=== PATIENT | female | born 1970 | race Caucasian/White ===

== ENCOUNTER 2018-01-23 12:25 | Inpatient (IN) | payer MEDICAID ==
[2018-01-23] MEDS ORDERED: cefTRIAXone 1 GM in Sodium Chloride 0.9% 50 ML IV ONE (13:15)
--- NOTE | 2018-01-23 13:22 | ED Physician Chart ---
ED Chief Complaint/HPI - Patient Information Date Seen:: 01/23/18 Time Seen:: 13:00 Chief Complaint:: Left Leg Redness History of Present Illness:: onset x 5 days of LLE redness, erythema, swelling, and pain; no report of trauma , H/As, S/T, neck pain, C/P, SOB, Abd. Pain, A/N/V/D/C, fever, chills, or urinary s/s Allergies:: Allergies Allergy/AdvReac Type Severity Reaction Status Date / Time No Known Allergies Allergy Verified 01/23/18 13:01 Vitals:: Vital Signs - 8 hr 01/23/18 13:01 Temp 97.9 F HR 79 RR 16 BP 121/62 O2 Sat % 98 Historian:: Patient, EMS Review:: Nurse's Note Reviewed, Old Chart Reviewed, EMS run form Reviewed ED Review of Systems - Review of Systems General/Constitutional: No fever, No chills, No weight loss, No weakness, No diaphoresis, No edema, No loss of appetite Skin: Skin lesions, Rash, No bruising Head: No headache, No light-headedness Eyes: No loss of vision, No pain, No diplopia ENT: No earache, No nasal drainage, No sore throat, No tinnitus Neck: No neck pain, No swelling, No thyromegaly, No stiffness, No mass noted Cardio Vascular: No chest pain, No palpitations, No PND, No orthopnea, No edema Pulmonary: No SOB, No cough, No sputum, No wheezing GI: No nausea, No vomiting, No diarrhea, No pain, No melena, No hematochezia, No constipation, No hematemesis G/U: No dysuria, No frequency, No hematuria, No nacturia Shot Polisher: No vaginal discharge, No abnormal vaginal bleed, No contraction Musculoskeletal: No bone or joint pain, No back pain, No muscle pain Endocrine: No polyuria, No polydipsia Psychiatric: Prior psych history, Depression, Anxiety, No suicidal ideation, No homicidal ideation, No auditory hallucination, No visual hallucination Hematopoietic: No bruising, No lymphadenopathy Allergic/Immuno: No urticaria, No angioedema Neurological: No syncope, No focal symptoms, No weakness, No paresthesia, No headache, No seizure, No dizziness, Confusion, No vertigo ED Past Medical History - Past Medical History Obtainable: Yes Past Medical History: Dementia Family History: None Social History: Non Smoker, No Alcohol, No Drug Use, Single, Care Facility Surgical History: None Psychiatricy History: Depression, Schizophrenia, Bipolar, Dementia Medication: Reviewed ED Physical Exam - Physical Examination General/Constitutional: Awake, Well-developed, well-nourished, Alert, No distress, GCS 15, Non-toxic appearing, Ambulatory Head: Atraumatic Eyes: Lids, conjuctiva normal, PERRL, EOMI Skin: Nl inspection, No rash, No skin lesions, No ecchymosis, Well hydrated, No lymphadenopathy Other Skin comments:: = LLE Cellulitis ENMT: External ears, nose nl, TM canals nl, Nasal exam nl, Lips, teeth, gums nl , Oropharynx nl, Tonsils nl Neck: Nontender, Full ROM w/o pain, No JVD, No nuchal rigidity, No bruit, No mass, No stridor Other Neck comments:: supple; no meningeal signs; no cervical tenderness Respiratory: Nl effort/Exclusion, Clear to Auscultation, No Wheeze/Rhonchi/Rales Cardio Vascular: RRR, No murmur, gallop, rubs, NL S1 S2, Carotid/Femoral/Distal pulses equal bilaterally GI: No tenderness/rebounding/guarding, No organomegaly, No hernia, Normal BS's, Nondistended, No mass/bruits, No McBurney tenderness, Rectum exam nl Other GI comments:: no pulsatile masses : No CVA tenderness Extremities: No tenderness or effusion, Full ROM, normal strength in all extremities, No edema, Normal digits & nails Neuro/Psych: Alert/oriented, DTR's symmetric, Normal sensory exam, Normal motor strength, Judgement/insight normal, Mood normal, Normal gait, No focal deficits Other Neuro/Psych comments:: no focal signs Misc: Normal back, No paraspinal tenderness ED Labs/Radiology/EKG Results - Lab Results Comments:: H/H: 11.8/34.5 - Radiology Results Comments:: U/S: no DVT; Negative; NAD - EKG Interpretations EKG Time:: 13:23 Rate & Rhythm: 66; NSR Comments:: non-specific st-t changes ED Septic Shock - . Is Septic Shock (SBP<90, OR Lactate>4 mmol\L) present?: No - <6hrs of presentation: Vital Signs: Vital Signs - 8 hr 01/23/18 13:01 Temp 97.9 F HR 79 RR 16 BP 121/62 O2 Sat % 98 ED Reassessment (Disposition) - Reassessment Reassessment Condition:: Improved - Diagnosis Diagnosis:: Dx: Cellulitis; Left Leg Pain; Anemia - Aftercare/Follow up Instructions Aftercare/Follow-Up Instructions:: Counseled pt regarding lab results/diagnosis & need follow up, Counseled pt & family regarding lab results/diagnosis & need follow up - Patient Disposition Discharge/Transfer:: Acute Care w/in this hosp Accepting Physician:: Dr. Daniel Time Called:: 1430 Time Responded:: 14:30 Admitted to:: Med/Surg Spoke to:: Dr. Daniel Admitting Medical Physician:: Dr. Daniel Condition at Disposition:: Stable, Improved
[2018-01-23 13:47] LABS: % BASOPHILS 0.5 % (0.0-2.0); % EOSINOPHILS 0.5 % (0.0-5.0); % LYMPHOCYTES 21.4 % (20.0-50.0); % MONOCYTES 7.8 % (2.0-10.0); % NEUTROPHILS 69.8 % (40.0-80.0); HEMATOCRIT 34.5 % (41.0-60); HEMOGLOBIN 11.8 gm/dL (12-16); LYMPHOCYTE ABSOLUTE 1.3 Th/cmm (1.5-3.0); MEAN CELL VOLUME 88.9 fl (81-100); MEAN CORPUSCULAR HEMOGLOBIN 30.4 pg (27.0-31.0); MEAN CORPUSCULAR HGB CONC 34.2 pg (28.0-36.0); MEAN PLATELET VOLUME 7.2 fl; MONOCYTE ABSOLUTE 0.5 Th/cmm (0.3-1.0); NEUTROPHILE ABSOLUTE 4.4 Th/cmm (1.8-8.0); PLATELET COUNT 201 Th/cmm (150-400); RED BLOOD COUNT 3.88 Mil/cmm (3.80-5.10); RED CELL DISTRIBUTION WIDTH 13.8 % (11.5-20.0); WHITE BLOOD COUNT 6.2 Th/cmm (4.8-10.8)
[2018-01-23 13:57] LABS: INR 0.98 (0.5-1.4); PROTHROMBIN TIME (TEST) 10.2 SECONDS (9.5-11.5)
[2018-01-23 14:00] LABS: ALBUMIN 3.5 gm/dL (3.7-5.3); ALKALINE PHOSPHATASE 39 U/L (34-104); ANION GAP 10.2 (7.0-16.0); BILIRUBIN,TOTAL 0.2 mg/dL (0.3-1.0); BUN - UREA NITROGEN 18 mg/dL (7-25); CALCIUM SERUM 9.1 mg/dL (8.6-10.3); CARBON DIOXIDE 30.7 mEq/L (21.0-31.0); CHLORIDE 100 mEq/L (98-107); CREATININE - SERUM 0.6 mg/dL (0.6-1.2); CREATININE KINASE 31 U/L (30-223); GFR AFRICAN-AMERICAN > 60.0 ml/min (>90); GFR NON AFRICAN-AMERICAN > 60.0 ml/min; GLUCOSE 131 mg/dL (70-105); POTASSIUM SERUM 3.9 mEq/L (3.5-5.1); SGOT 11 U/L (13-39); SGPT/ALT 5 U/L (7-52); SODIUM SERUM 137 mEq/L (136-145); TOTAL PROTEIN,SERUM 7.2 gm/dL (6.0-8.3)
--- NOTE | 2018-01-23 14:52 | Diagnostic Imaging Report ---
Bilateral lower extremity DVT study HISTORY: Pain COMPARISON: None Technique: Longitudinal and transverse sonographic images of the bilateral lower extremity veins were obtained with doppler analysis. FINDINGS: There is normal compressibility, augmentation and phasicity of the bilateral common femoral, superficial femoral, popliteal, and posterior tibial veins. There is suboptimal evaluation of bilateral peroneal veins. No thrombus is visualized. IMPRESSION: Suboptimal assessment of the bilateral peroneal veins. Otherwise No evidence of thrombus within the bilateral lower extremity veins.
[2018-01-23] MEDS ORDERED: INGREZZA 40 MG PO SCH (21:00)
[2018-01-23 21:04] LABS: URINE MICROSCOPIC INDICATED? YES; URINE SOURCE MIDSTREAM
[2018-01-23 21:05] LABS: URINE BILIRUBIN NEGATIVE (NEGATIVE); URINE BLOOD TRACE (NEGATIVE); URINE GLUCOSE (UA) NEGATIVE (NEGATIVE); URINE KETONE NEGATIVE (NEGATIVE); URINE LEUKOCYTE ESTERASE NEGATIVE (NEGATIVE); URINE NITRATE NEGATIVE (NEGATIVE); URINE PH 7.5 (4.6 - 8.0); URINE PROTEIN NEGATIVE (NEGATIVE); URINE UROBILINOGEN 0.2 E.U./dL (0.2 - 1.0)
[2018-01-23 21:10] LABS: URINE CLARITY CLEAR (CLEAR); URINE COLOR YELLOW
[2018-01-23 21:15] LABS: URINE BACTERIA NONE SEEN /hpf (NONE SEEN); URINE EPITHELIAL CELLS NONE SEEN /lpf (FEW); URINE WBC NONE SEEN /hpf (0-5)
[2018-01-23 21:51] VITALS: BP 106/78
[2018-01-23] MEDS ORDERED: Piperacillin Sodium/Tazobact 3.375 gm Vial IV ONE (21:53)
[2018-01-24] MEDS ORDERED: Piperacillin Sodium/Tazobact 3.375 gm Vial IV ONE (05:05)
[2018-01-24 06:49] LABS: % BASOPHILS 0.6 % (0.0-2.0); % EOSINOPHILS 0.8 % (0.0-5.0); % LYMPHOCYTES 37.6 % (20.0-50.0); % MONOCYTES 9.9 % (2.0-10.0); % NEUTROPHILS 51.1 % (40.0-80.0); HEMATOCRIT 33.2 % (41.0-60); HEMOGLOBIN 11.5 gm/dL (12-16); MEAN CELL VOLUME 89.4 fl (81-100); MEAN CORPUSCULAR HEMOGLOBIN 30.9 pg (27.0-31.0); MEAN CORPUSCULAR HGB CONC 34.6 pg (28.0-36.0); MEAN PLATELET VOLUME 7.5 fl; MONOCYTE ABSOLUTE 0.5 Th/cmm (0.3-1.0); NEUTROPHILE ABSOLUTE 2.9 Th/cmm (1.8-8.0); PLATELET COUNT 186 Th/cmm (150-400); RED BLOOD COUNT 3.71 Mil/cmm (3.80-5.10); RED CELL DISTRIBUTION WIDTH 13.7 % (11.5-20.0); WHITE BLOOD COUNT 5.4 Th/cmm (4.8-10.8)
[2018-01-24 07:06] LABS: ALB/GLOB RATIO 0.9 (1.0-1.8); ALBUMIN 3.2 gm/dL (3.7-5.3); ALKALINE PHOSPHATASE 36 U/L (34-104); BILIRUBIN,TOTAL 0.3 mg/dL (0.3-1.0); BUN - UREA NITROGEN 17 mg/dL (7-25); CALCIUM SERUM 8.9 mg/dL (8.6-10.3); CHLORIDE 101 mEq/L (98-107); CREATININE - SERUM 0.7 mg/dL (0.6-1.2); GFR AFRICAN-AMERICAN > 60.0 ml/min (>90); GFR NON AFRICAN-AMERICAN > 60.0 ml/min; GLUCOSE 89 mg/dL (70-105); SGOT 11 U/L (13-39); SGPT/ALT 5 U/L (7-52); SODIUM SERUM 137 mEq/L (136-145); TOTAL PROTEIN,SERUM 6.8 gm/dL (6.0-8.3)
--- NOTE | 2018-01-24 08:52 | History and Physical ---
History of Present Illness - HPI Chief Complaint: Lower leg edema HPI: Per chart information patient has having 5 days with redness and edema of lower extremities. Vital Signs: Last Vital Signs Temp 98.2 F 01/24/18 04:00 Pulse 69 01/24/18 04:00 Resp 18 01/24/18 04:00 BP 112/74 01/24/18 04:00 Pulse Ox 97 01/24/18 04:00 Past Medical History Cardiovascular: Report: No Pertinent Hx Pulmonary: Report: No Pertinent Hx BIT TRIPOLER: Report: Dementia GI: Report: No Pertinent Hx Psych: Report: Bipolar, Depression, Schizophrenia Musculoskeletal: Report: Weakness, Swelling, Other (Lower extremities with pitting edema 2+) Rheumatologic: Report: No pertinent Hx Infectious Disease: Report: No Pertinent Hx Renal/: Report: No Pertinent Hx Endocrine: Report: No Pertinent Hx Dermatology: Report: No Pertinent Hx Family Medical History - Family Member Mother Other Medical History: unable to give information. Social History Smoke: No Alcohol: None Drugs: None Lives: Retirement Domestic Violence: Negative - Medications Home Medications: Home Medication Medication Instructions Recorded Type Benztropine [Cogentin*] 1 tab PO DAILY 01/23/18 History Diphenhydramine HCl [Unisom] 2 cap PO BID PRN 01/23/18 History Divalproex Sodium [Depakote] 3 tab PO HS 01/23/18 History Ingrezza 40 mg PO HS 01/23/18 History Lorazepam [Ativan] 1 tab PO BID 01/23/18 History OLANZapine [ZyPREXA] 1 tab PO DAILY 01/23/18 History OLANZapine [ZyPREXA] 1 tab PO HS 01/23/18 History - Allergies Allergies/Adverse Reactions: Allergies Allergy/AdvReac Type Severity Reaction Status Date / Time No Known Allergies Allergy Verified 01/23/18 13:01 Review of Systems - Review of Systems Constitutional: Report: No Significant Eyes: Report: No Significant ENT: Report: No Significant Respiratory: Report: No Significant Cardiovascular: Report: No Significant Gastrointestinal: Report: No Significant Genitourinary: Report: No Significant Musculoskeletal: Report: No Significant Skin: Report: Other (Redness of both lower legs. ) Neurological: Report: Weakness Physical Exam - Physical Exam HEENT: Report: Ears Nose Throat within normal limits Neck: Report: Within normal limits Cardiovascular Systems: Report: Regular, Rate and Rhythm Respiratory: Report: Breath Sounds are within normal limits Abdomen: Report: Non-tender to palpation Back: Report: Inspection of back is within normal limits. Extremities: Report: Pedal edema was noted on inspection, Other Skin: Report: Warm, Dry, Other Neuro/Psych: Report: Disoriented to name time or place - Lab Results All Lab Results last 24 hours: Laboratory Results - last 24 hr 01/23/18 01/23/18 01/23/18 13:32 13:32 13:32 WBC 6.2 RBC 3.88 Hgb 11.8 L Hct 34.5 L MCV 88.9 MCH 30.4 MCHC Differential 34.2 RDW 13.8 Plt Count 201 MPV 7.2 Neutrophils % 69.8 Lymphocytes % 21.4 Monocytes % 7.8 Eosinophils % 0.5 Basophils % 0.5 PT 10.2 INR 0.98 PTT (Actin FS) 23.2 L Sodium 137 Potassium 3.9 Chloride 100 Carbon Dioxide 30.7 Anion Gap 10.2 BUN 18 Creatinine 0.6 Est GFR ( Amer) > 60.0 Est GFR (Non-Af Amer) > 60.0 BUN/Creatinine Ratio 30.0 Glucose 131 H Whole Bld Lactic Acid Calcium 9.1 Total Bilirubin 0.2 L AST 11 L ALT 5 L Alkaline Phosphatase 39 Creatine Kinase 31 Troponin I Total Protein 7.2 Albumin 3.5 L Globulin 3.7 Albumin/Globulin Ratio 1.0 Serum , Qual Urine Source Urine Color Urine Clarity Urine pH Ur Specific [place] Urine Protein Urine Glucose (UA) Urine Ketones Urine Blood Urine Nitrate Urine Bilirubin Urine Urobilinogen Ur Leukocyte Esterase Urine RBC Urine WBC Ur Epithelial Cells Urine Bacteria 01/23/18 01/23/18 01/23/18 13:32 13:32 13:32 WBC RBC Hgb Hct MCV MCH MCHC Differential RDW Plt Count MPV Neutrophils % Lymphocytes % Monocytes % Eosinophils % Basophils % PT INR PTT (Actin FS) Sodium Potassium Chloride Carbon Dioxide Anion Gap BUN Creatinine Est GFR ( Amer) Est GFR (Non-Af Amer) BUN/Creatinine Ratio Glucose Whole Bld Lactic Acid 1.20 Calcium Total Bilirubin AST ALT Alkaline Phosphatase Creatine Kinase Troponin I < 0.01 L Total Protein Albumin Globulin Albumin/Globulin Ratio Serum , Qual NEGATIVE Urine Source Urine Color Urine Clarity Urine pH Ur Specific [place] Urine Protein Urine Glucose (UA) Urine Ketones Urine Blood Urine Nitrate Urine Bilirubin Urine Urobilinogen Ur Leukocyte Esterase Urine RBC Urine WBC Ur Epithelial Cells Urine Bacteria 01/23/18 01/24/18 01/24/18 19:35 06:00 06:00 WBC 5.4 RBC 3.71 L Hgb 11.5 L Hct 33.2 L MCV 89.4 MCH 30.9 MCHC Differential 34.6 RDW 13.7 Plt Count 186 MPV 7.5 Neutrophils % 51.1 Lymphocytes % 37.6 Monocytes % 9.9 Eosinophils % 0.8 Basophils % 0.6 PT INR PTT (Actin FS) Sodium 137 Potassium 4.0 Chloride 101 Carbon Dioxide 29.0 Anion Gap 11.0 BUN 17 Creatinine 0.7 Est GFR ( Amer) > 60.0 Est GFR (Non-Af Amer) > 60.0 BUN/Creatinine Ratio 24.3 Glucose 89 Whole Bld Lactic Acid Calcium 8.9 Total Bilirubin 0.3 AST 11 L ALT 5 L Alkaline Phosphatase 36 Creatine Kinase Troponin I Total Protein 6.8 Albumin 3.2 L Globulin 3.6 Albumin/Globulin Ratio 0.9 L Serum , Qual Urine Source [place] Urine Color YELLOW Urine Clarity CLEAR Urine pH 7.5 Ur Specific [place] 1.010 Urine Protein NEGATIVE Urine Glucose (UA) NEGATIVE Urine Ketones NEGATIVE Urine Blood TRACE Urine Nitrate NEGATIVE Urine Bilirubin NEGATIVE Urine Urobilinogen 0.2 Ur Leukocyte Esterase NEGATIVE Urine RBC 2-5 Urine WBC NONE SEEN Ur Epithelial Cells NONE SEEN Urine Bacteria NONE SEEN - Assessment Assessment: Patient is awake, alert, confused, not oriented. Dx: Cellulitis, Dementia, Depression Schizophrenia, Bipolar - Plan Plan: Patient in IV NS, IV AB, continue with SNF meds. Will continue to monitor.
[2018-01-24] MEDS ORDERED: Benztropine 1 MG TAB PO SCH (09:00)
[2018-01-24] MEDS: cefTRIAXone 1 GM in Sodium Chloride 0.9% 50 ML IV SCH (14:18)
[2018-01-25 07:51] LABS: % BASOPHILS 0.6 % (0.0-2.0); % EOSINOPHILS 0.9 % (0.0-5.0); % LYMPHOCYTES 34.2 % (20.0-50.0); % MONOCYTES 11.1 % (2.0-10.0); % NEUTROPHILS 53.2 % (40.0-80.0); EOSINOPHILE ABSOLUTE 0.1 Th/cmm (0.1-0.4); HEMATOCRIT 35.5 % (41.0-60); HEMOGLOBIN 12.3 gm/dL (12-16); LYMPHOCYTE ABSOLUTE 2.1 Th/cmm (1.5-3.0); MEAN CORPUSCULAR HEMOGLOBIN 30.9 pg (27.0-31.0); MEAN CORPUSCULAR HGB CONC 34.7 pg (28.0-36.0); MEAN PLATELET VOLUME 7.3 fl; MONOCYTE ABSOLUTE 0.7 Th/cmm (0.3-1.0); NEUTROPHILE ABSOLUTE 3.1 Th/cmm (1.8-8.0); PLATELET COUNT 215 Th/cmm (150-400); RED BLOOD COUNT 3.99 Mil/cmm (3.80-5.10)
[2018-01-25 08:22] LABS: ALB/GLOB RATIO 0.9 (1.0-1.8); ALBUMIN 3.6 gm/dL (3.7-5.3); ALKALINE PHOSPHATASE 48 U/L (34-104); ANION GAP 12.4 (7.0-16.0); BILIRUBIN,TOTAL 0.4 mg/dL (0.3-1.0); BUN - UREA NITROGEN 15 mg/dL (7-25); CALCIUM SERUM 9.5 mg/dL (8.6-10.3); CARBON DIOXIDE 29.5 mEq/L (21.0-31.0); CHLORIDE 99 mEq/L (98-107); CREATININE - SERUM 0.8 mg/dL (0.6-1.2); GFR AFRICAN-AMERICAN > 60.0 ml/min (>90); GFR NON AFRICAN-AMERICAN > 60.0 ml/min; GLUCOSE 96 mg/dL (70-105); POTASSIUM SERUM 3.9 mEq/L (3.5-5.1); SGOT 11 U/L (13-39); SGPT/ALT 6 U/L (7-52); SODIUM SERUM 137 mEq/L (136-145); TOTAL PROTEIN,SERUM 7.5 gm/dL (6.0-8.3)
--- NOTE | 2018-01-25 09:00 | General Progress Note ---
Subjective - Review of Systems Service Date: 01/25/18 Subjective: I haven diarrhea Objective - Results Result Diagrams: 01/25/18 07:19 01/25/18 07:19 Recent Labs: Laboratory Last Values WBC 6.0 Th/cmm (4.8-10.8) 01/25/18 07:19 RBC 3.99 Mil/cmm (3.80-5.10) 01/25/18 07:19 Hgb 12.3 gm/dL (12-16) 01/25/18 07:19 Hct 35.5 % (41.0-60) L 01/25/18 07:19 MCV 89.0 fl (81-100) 01/25/18 07:19 MCH 30.9 pg (27.0-31.0) 01/25/18 07:19 MCHC Differential 34.7 pg (28.0-36.0) 01/25/18 07:19 RDW 14.0 % (11.5-20.0) 01/25/18 07:19 Plt Count 215 Th/cmm (150-400) 01/25/18 07:19 MPV 7.3 fl 01/25/18 07:19 Neutrophils % 53.2 % (40.0-80.0) 01/25/18 07:19 Lymphocytes % 34.2 % (20.0-50.0) 01/25/18 07:19 Monocytes % 11.1 % (2.0-10.0) H 01/25/18 07:19 Eosinophils % 0.9 % (0.0-5.0) 01/25/18 07:19 Basophils % 0.6 % (0.0-2.0) 01/25/18 07:19 PT 10.2 SECONDS (9.5-11.5) 01/23/18 13:32 INR 0.98 (0.5-1.4) 01/23/18 13:32 PTT (Actin FS) 23.2 SECONDS (26.0-38.0) L 01/23/18 13:32 Sodium 137 mEq/L (136-145) 01/25/18 07:19 Potassium 3.9 mEq/L (3.5-5.1) 01/25/18 07:19 Chloride 99 mEq/L (98-107) 01/25/18 07:19 Carbon Dioxide 29.5 mEq/L (21.0-31.0) 01/25/18 07:19 Anion Gap 12.4 (7.0-16.0) 01/25/18 07:19 BUN 15 mg/dL (7-25) 01/25/18 07:19 Creatinine 0.8 mg/dL (0.6-1.2) 01/25/18 07:19 Est GFR ( Amer) > 60.0 ml/min (>90) 01/25/18 07:19 Est GFR (Non-Af Amer) > 60.0 ml/min 01/25/18 07:19 BUN/Creatinine Ratio 18.8 01/25/18 07:19 Glucose 96 mg/dL (70-105) 01/25/18 07:19 Whole Bld Lactic Acid 1.20 mmol/L (0.60-1.99) 01/23/18 13:32 Calcium 9.5 mg/dL (8.6-10.3) 01/25/18 07:19 Total Bilirubin 0.4 mg/dL (0.3-1.0) 01/25/18 07:19 AST 11 U/L (13-39) L 01/25/18 07:19 ALT 6 U/L (7-52) L 01/25/18 07:19 Alkaline Phosphatase 48 U/L (34-104) 01/25/18 07:19 Creatine Kinase 31 U/L (30-223) 01/23/18 13:32 Troponin I < 0.01 ng/mL (0.01-0.05) L 01/23/18 13:32 Total Protein 7.5 gm/dL (6.0-8.3) 01/25/18 07:19 Albumin 3.6 gm/dL (3.7-5.3) L 01/25/18 07:19 Globulin 3.9 gm/dL 01/25/18 07:19 Albumin/Globulin Ratio 0.9 (1.0-1.8) L 01/25/18 07:19 Serum , Qual NEGATIVE (NEGATIVE) 01/23/18 13:32 Urine Source MIDSTREAM 01/23/18 19:35 Urine Color YELLOW 01/23/18 19:35 Urine Clarity CLEAR (CLEAR) 01/23/18 19:35 Urine pH 7.5 (4.6 - 8.0) 01/23/18 19:35 Ur Specific [place] 1.010 (1.005-1.030) 01/23/18 19:35 Urine Protein NEGATIVE mg/dL (NEGATIVE) 01/23/18 19:35 Urine Glucose (UA) NEGATIVE mg/dL (NEGATIVE) 01/23/18 19:35 Urine Ketones NEGATIVE mg/dL (NEGATIVE) 01/23/18 19:35 Urine Blood TRACE (NEGATIVE) 01/23/18 19:35 Urine Nitrate NEGATIVE (NEGATIVE) 01/23/18 19:35 Urine Bilirubin NEGATIVE (NEGATIVE) 01/23/18 19:35 Urine Urobilinogen 0.2 E.U./dL (0.2 - 1.0) 01/23/18 19:35 Ur Leukocyte Esterase NEGATIVE (NEGATIVE) 01/23/18 19:35 Urine RBC 2-5 /hpf (0-5) 01/23/18 19:35 Urine WBC NONE SEEN /hpf (0-5) 01/23/18 19:35 Ur Epithelial Cells NONE SEEN /lpf (FEW) 01/23/18 19:35 Urine Bacteria NONE SEEN /hpf (NONE SEEN) 01/23/18 19:35 - Physical Exam Vitals and I&O: Vital Signs Temp 96.8 F 01/25/18 08:07 Pulse 66 01/25/18 08:07 Resp 19 01/25/18 08:07 BP 90/55 01/25/18 08:07 Pulse Ox 99 01/25/18 08:07 Intake & Output 01/24/18 01/25/18 01/25/18 18:59 06:59 18:59 Intake Total 1150 350 Balance 1150 350 Weight (lbs) 108.318 kg 130.136 kg 130.136 kg Intake: Intake, IV Amount 50 50 Piperacillin Sodium/ 50 50 Tazobact 3.375 gm In Sodium Chloride 0.9% 50 ml @ 100 mls/hr IV Q8HR [facility] Rx#:[id number] Oral 1100 200 Other 100 Other: # Voids 3 3 # Bowel Movements 1 0 Stool Characteristics Soft Soft Soft Weight Source Bedscale Bedscale Bedscale Active Medications: Current Medications Benztropine Mesylate (Cogentin) 1 mg PO BID KATHLEEN Stop: 03/26/18 08:59 Diphenhydramine HCl (Benadryl) 100 mg PO BID PRN PRN Reason: Itching Divalproex Sodium (Depakote Dr) 1,500 mg PO HS KATHLEEN; Protocol Stop: 03/24/18 20:59 Last Admin: 01/24/18 20:18 Dose: 1,500 mg Ceftriaxone Sodium 1 gm/ (Sodium Chloride) 50 mls @ 100 mls/hr IV Q24H KATHLEEN Stop: 03/25/18 14:59 Last Admin: 01/24/18 14:18 Dose: 100 mls/hr Piperacillin Sod/Tazobactam (Sod 3.375 gm/ Sodium Chloride) 50 mls @ 100 mls/ hr IV Q8HR KATHLEEN Stop: 03/24/18 20:59 Last Admin: 01/25/18 05:19 Dose: 100 mls/hr Lorazepam (Ativan) 1 mg PO BID PRN; Protocol PRN Reason: Agitation Stop: 03/24/18 19:44 Olanzapine (Zyprexa) 10 mg PO DAILY [facility]; Protocol Stop: 03/24/18 19:44 Last Admin: 01/24/18 08:06 Dose: 10 mg General: Alert, Other (Confused not oriented) HEENT: Atraumatic Neck: Supple Cardiovascular: Regular rate Abdomen: Bowel sounds Extremities: Other (Redness and pitting edema 1+) Neurological: Other (Walk with walker assistance. Patient has tremor of both arms. ) Skin: Other (Redness of lower extremities.) Psych/Mental Status: Other (Confused, not oriented.) Assessment/Plan - Assessment Assessment: Patient is awake, alert, confused, not oriented. Today patient had 2 diarrheic evacuations. Stool culture is requested. Dx: Cellulitis, Dementia, Depression Schizophrenia, Bipolar - Plan Plan: Patient in IV NS, IV AB, continue with SNF meds. Cogentin is increased. Will continue to monitor.
[2018-01-25] MEDS: Benztropine 1 MG TAB PO SCH ×2 (10:35→17:19)
[2018-01-25] MEDS: cefTRIAXone 1 GM in Sodium Chloride 0.9% 50 ML IV SCH (15:22)
--- NOTE | 2018-01-25 20:12 | Consultation ---
DATE OF CONSULTATION: 01/25/2018 PSYCHIATRIC CONSULTATION REQUESTING PHYSICIAN CONSULTATION: Dr. Daniel. REASON FOR CONSULTATION: Psychosis. HISTORY OF PRESENT ILLNESS: This patient is a 47-year-old woman, admitted here for edema of the lower extremities and the patient is reported to have been getting easily agitated and has been displaying acute mood swings and a psychiatric consultation is called to address the issue. Chart is reviewed. The patient is interviewed. At the time of the evaluation, the patient has been shaking vigorously in the upper extremities and stating that she cannot control. Review of the chart indicated that the patient has been on the benztropine 1 mg 1 tablet daily and valproic acid 500 mg 3 at bedtime and the patient also has been getting the Zyprexa and Ingrezza 40 mg at bedtime. The patient at this time is not able to give much of information, but has been tearful and crying and dizzy. When asked why she is doing it, she states this is because it is Monday. The patient has not been making much sense at this time and is stating that her children are there next to her and she could not give me any information. The patient is going on a tangent and the patient has not been able to provide detailed information. PAST PSYCHIATRIC HISTORY: The patient is reporting that she was hospitalized, but could not give much of information. SUBSTANCE ABUSE HISTORY: None. PHYSICAL OR SEXUAL ABUSE HISTORY: None. LEGAL PROBLEMS: None at this time. STRENGTHS AND ASSETS: The patient is motivated at this time. MENTAL STATUS EXAMINATION: The patient is a 47-year-old woman looking her stated age, superficially cooperative. Eye contact is poor. Mood is irritable. Affect is constricted. The patient's insight and judgment are very impaired. Impulse control is very poor. Coping skills are also noted to be very poor. The patient has been having difficult time to cope with the stress. The patient has been having tremor in the upper extremity. The patient is noted to be tearful and crying and the next minute the patient is stating that she needs to take care of her children. The patient has no insight into her illness. The patient has paranoid delusions. The patient is denying any auditory hallucinations, but mood swings are a major concern for this patient. The patient is alert and aware that she is in the hospital and the patient is not presenting any threats to harm self or others. DIAGNOSTIC IMPRESSION: AXIS I: Schizoaffective disorder. AXIS II: None. AXIS III: As per Dr. Daniel. IMMEDIATE TREATMENT PLAN. The patient is going to be observed on the inpatient unit, provided supportive to psychotherapy. The patient is going to be closely monitored. Once stabilized, the patient is going to be discharged to [facility] to be followed up on an outpatient basis. JOB# [id number]
--- NOTE | 2018-01-26 08:41 | Discharge Summary ---
General Discharge Summary - Discharge Summary Date of Admission: 01/23/18 Admitting Diagnosis: Cellulitis, Dementia, schizophrenia, Depresion Discharge Date: 01/26/18 Discharge Diagnosis: Cellulitis, Dementia, depression, schizophrenia Hospital Course: Patient was hospitalized, and she responded to treatment Treatment: IV NS, IV AB, and she was continue with SNF meds. Disposition: PT DISCHARGED HOME Home Medications: Home Medication Medication Instructions Recorded Type Benztropine [Cogentin*] 1 tab PO DAILY 01/23/18 History Diphenhydramine HCl [Unisom] 2 cap PO BID PRN 01/23/18 History Divalproex Sodium [Depakote] 3 tab PO HS 01/23/18 History Ingrezza 40 mg PO HS 01/23/18 History Lorazepam [Ativan] 1 tab PO BID 01/23/18 History OLANZapine [ZyPREXA] 1 tab PO DAILY 01/23/18 History OLANZapine [ZyPREXA] 1 tab PO HS 01/23/18 History Mupirocin Oint [Mupirocin*] 1 appl NS BID appl 01/26/18 Rx Inpatient Medications: Current Medications Benztropine Mesylate (Cogentin) 1 mg PO BID [facility] Stop: 03/26/18 08:59 Last Admin: 01/25/18 17:19 Dose: 1 mg Diphenhydramine HCl (Benadryl) 100 mg PO BID PRN PRN Reason: Itching Divalproex Sodium (Depakote Dr) 1,500 mg PO HS [facility]; Protocol Stop: 03/24/18 20:59 Last Admin: 01/25/18 20:09 Dose: 1,500 mg Ceftriaxone Sodium 1 gm/ (Sodium Chloride) 50 mls @ 100 mls/hr IV Q24H [facility] Stop: 03/25/18 14:59 Last Admin: 01/25/18 15:22 Dose: 100 mls/hr Piperacillin Sod/Tazobactam (Sod 3.375 gm/ Sodium Chloride) 50 mls @ 100 mls/ hr IV Q8HR [facility] Stop: 03/24/18 20:59 Last Admin: 01/26/18 05:00 Dose: 100 mls/hr Ketorolac Tromethamine (Toradol) 30 mg IM Q8HR PRN PRN Reason: Abdominal Pain Stop: 03/26/18 20:59 Lorazepam (Ativan) 1 mg PO BID PRN; Protocol PRN Reason: Agitation Stop: 03/24/18 19:44 Last Admin: 01/25/18 20:10 Dose: 1 mg Mupirocin (Bactroban Oint) 1 appl NS BID [facility]ATHLEEN Stop: 01/30/18 09:01 Last Admin: 01/25/18 17:17 Dose: 1 appl Olanzapine (Zyprexa) 10 mg PO HS KATHLEEN; Protocol Stop: 03/26/18 20:59 Last Admin: 01/25/18 20:10 Dose: 10 mg Activity: As Tolerated Discharge Diet: Regular Consults and Follow-Up: ELIZABETH REHMAN [Other] not on staff,PCP is [Primary Care Provider] - Consulting Speciality: Other (PCP) Instructions: Cellulitis
[2018-01-26] MEDS: Benztropine 1 MG TAB PO SCH (08:58)
[2018-01-26] MEDS ORDERED: Sulfamethoxazole/TMP 800/160mg Tab PO SCH (09:00)
[2018-01-26 11:36] LABS: % EOSINOPHILS 0.6 % (0.0-5.0); % LYMPHOCYTES 27.2 % (20.0-50.0); % MONOCYTES 9.6 % (2.0-10.0); % NEUTROPHILS 61.6 % (40.0-80.0); BASOPHILE ABSOLUTE 0.1 Th/cumm (0-0.2); HEMATOCRIT 35.3 % (41.0-60); HEMOGLOBIN 12.2 gm/dL (12-16); LYMPHOCYTE ABSOLUTE 1.5 Th/cmm (1.5-3.0); MEAN CORPUSCULAR HEMOGLOBIN 30.7 pg (27.0-31.0); MEAN CORPUSCULAR HGB CONC 34.5 pg (28.0-36.0); MEAN PLATELET VOLUME 6.9 fl; MONOCYTE ABSOLUTE 0.5 Th/cmm (0.3-1.0); NEUTROPHILE ABSOLUTE 3.4 Th/cmm (1.8-8.0); PLATELET COUNT 201 Th/cmm (150-400); RED BLOOD COUNT 3.96 Mil/cmm (3.80-5.10); RED CELL DISTRIBUTION WIDTH 14.1 % (11.5-20.0); WHITE BLOOD COUNT 5.5 Th/cmm (4.8-10.8)
[2018-01-26 11:55] LABS: ALB/GLOB RATIO 0.9 (1.0-1.8); ALBUMIN 3.6 gm/dL (3.7-5.3); ALKALINE PHOSPHATASE 49 U/L (34-104); ANION GAP 8.9 (7.0-16.0); BILIRUBIN,TOTAL 0.3 mg/dL (0.3-1.0); BUN - UREA NITROGEN 14 mg/dL (7-25); CALCIUM SERUM 9.2 mg/dL (8.6-10.3); CHLORIDE 99 mEq/L (98-107); CREATININE - SERUM 0.9 mg/dL (0.6-1.2); GFR AFRICAN-AMERICAN > 60.0 ml/min (>90); GFR NON AFRICAN-AMERICAN > 60.0 ml/min; GLUCOSE 125 mg/dL (70-105); POTASSIUM SERUM 3.9 mEq/L (3.5-5.1); SGOT 12 U/L (13-39); SGPT/ALT 5 U/L (7-52); SODIUM SERUM 135 mEq/L (136-145); TOTAL PROTEIN,SERUM 7.6 gm/dL (6.0-8.3)
[2018-01-26] MEDS: cefTRIAXone 1 GM in Sodium Chloride 0.9% 50 ML IV SCH (15:13)
== END 2018-01-26 18:05 | disposition home or self-care (01) | DRG 383 ==
LOC: ER 12:25 → MSI 19:06
PROVIDERS: ADMIT General Practice; ATTEND General Practice
PROC: 3E0234Z Introduction of Serum, Toxoid and Vaccine into Muscle, Percutaneous Approach (ICD-10-PCS; principal; 2018-01-23)
DX: L03.116 Cellulitis of left lower limb (principal); F03.90 Unspecified dementia, unspecified severity, without behavioral disturbance, psychotic disturbance, mood disturbance, and anxiety; F25.9 Schizoaffective disorder, unspecified; F31.30 Bipolar disorder, current episode depressed, mild or moderate severity, unspecified; L03.115 Cellulitis of right lower limb; D64.9 Anemia, unspecified; Z79.899 Other long term (current) drug therapy; Z23 Encounter for immunization
CPT/HCPCS: 36415-UA; 80053-TC; 81001-TC; 82550-TC; 83605; 84443-TC; 84484-TC; 84703-TC; 85025-TC; 85610-TC; 85730-TC; 93005; 93970-TC-50; J0696; J2543; X3904; Z7610